=== PATIENT | female | born 1990 | race Caucasian/White ===

== ENCOUNTER 2020-10-15 07:57 | Inpatient (IN) ==
[2020-10-15] MEDS ORDERED: OXYTOCIN 30 UNITS/500 ML BAG IV PRN ×2 (08:26→21:59)
--- NOTE | 2020-10-15 08:56 | Progress Note ---
Date of Service October 15, 2020 Assessment & Plan Admission and Anticipated Discharge Date Admission Date: October 15, 2020 Subjective Admit Note Results & Data ([facility] [place]) Vital Signs (Past 12 Hours) Vital Signs Temp Pulse Resp BP 10/15/20 08:18 37.0 C 90 20 132/74
[2020-10-15] MEDS ORDERED: DINOPROSTONE 10 MG INSERT PV ONE (09:00)
[2020-10-15 09:07] LABS: Hematocrit (blood only) 36.5 % (37-47); Hemoglobin 11.9 g/dL (12.0-16.0); Mean Corpuscular Hemoglobin 29.3 pg (25-34); Mean Corpuscular Hgb Conc 32.6 g/dL (32-36); Mean Corpuscular Volume 89.9 fL (80-100); Mean Platelet Volume 12.4 fL (7.4-10.4); Platelet Count 178 K/uL (130-400); RDW Coefficient of Variation 17.9 % (11.5-14.5); RDW Standard Deviation 59.4 fL (36.4-46.3); Red Blood Count 4.06 M/uL (4.2-5.4); White Blood Count 6.73 K/uL (4.8-10.8)
--- NOTE | 2020-10-15 09:08 | History & Physical Report ---
Date of Service October 15, 2020 Assessment & Plan Admission and Anticipated Discharge Date Admission Date: October 15, 2020 History of Present Illness Chief Complaint: induction of labor Primary Care Provider: NO PCP 30 F P1001 at 39 weeks admitted to L&D for induction of labor due to history of macrosomia and possible shoulder dystocia in previous 03/02/19. Currently has macrosomia with cuurent as well. She is negative for gestational diabetes with this and prior . No other medical history of note. 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 [employer] History wnl Review of Systems All systems reviewed & are unremarkable except as noted in HPI & below Physical Exam Respiratory: normal respiratory effort, lungs clear to auscultation Cardiovascular: RRR, no murmur, no edema Gastrointestinal (Abdomen): normal bowel sounds, soft, nontender, no hepatosplenomegaly Musculoskeletal: no cyanosis or clubbing, extremities motor strength 5/5 Skin: no edema noted Genitourinary: normal external appearance OB Exam Abdomen: + fundal height, + heart tones, + vertex and + estimated weight (10 lbs.) Manual OB Exam: + cervical dilation (closed) fingertip, + cervical effacement (thick) and + station high Results & Data ([facility]) Vital Signs (Past 12 Hours) Vital Signs Temp Pulse Resp BP 10/15/20 08:18 37.0 C 90 20 132/74 Laboratory Results GBS is negative Monitoring External Monitor Cat 1 Tocodynamometer no active contractions OB - A/P Labor/Induction Additional Plan Induction method: other (Cervidil for cervical ripening)
--- NOTE | 2020-10-15 09:50 | Labor Progress Brief Note ---
Date of Service October 15, 2020 Subjective Reason For Note: Other Cervidil 10 mg placed vaginally. Risks of macrosomia delivery explained to patient and . Possible shoulder dystocia or rectal tear with a history of large baby in previous pregancy explained due to having macrosomia with current . I gave them option for possible . Will place Cervidil for ripening. Assessment & Plan Admission and Anticipated Discharge Date Admission Date: October 15, 2020 Results & Data ([facility]) Vital Signs (Past 12 Hours) Vital Signs Temp Pulse Resp BP 10/15/20 08:18 37.0 C 90 20 132/74
[2020-10-15] MEDS: LACTATED RINGER'S 1,000 ML IV PRN (22:28)
--- NOTE | 2020-10-15 22:29 | Labor Progress Brief Note ---
Date of Service October 15, 2020 Assessment & Plan Admission and Anticipated Discharge Date Admission Date: October 15, 2020 Physical Exam Genitourinary: no vaginal lesions, no adnexal mass Manual OB Exam: + cervical dilation 1 cm, + cervical effacement 50% and + station high speculum exam done and Kunz inserted in cervix with 35 ml saline. FHT Cat 1. Will start Oxytocin. Results & Data ([facility]) Vital Signs (Past 12 Hours) Vital Signs Temp Pulse Resp BP 10/15/20 19:04 36.7 C 71 18 138/90 10/15/20 15:12 36.8 C 71 20 134/73 10/15/20 13:15 66 20 142/83 H 10/15/20 11:54 61 144/91 H 10/15/20 11:38 70 141/95 H 10/15/20 11:29 36.9 C 75 20 137/92
[2020-10-16] MEDS ORDERED: ePHEDrine sulfate 50 MG/ML AMP ONE (02:48)
[2020-10-16] MEDS ORDERED: fentaNYL citrate 100 MCG/2 ML VIAL ONE (02:48)
[2020-10-16] MEDS ORDERED: SODIUM CHLORIDE 0.9% INJ 10 ML VIAL ONE (02:48)
[2020-10-16] MEDS ORDERED: BUPIVACAINE 0.25% 30 ML VIAL ONE (02:48)
[2020-10-16] MEDS ORDERED: fentaNYL 2MCG/ML ROPIVACAINE 1.25MG/ML 100 ML BAG EPI ONE (02:49)
--- NOTE | 2020-10-16 02:52 | Anesthesiology Consultation ---
Date of Service October 16, 2020 Assessment & Plan (1) Encounter for pre-operative examination: Chart Review Chart Review: Acceptable Risk for Surgery and Patient NOT seen in Pre Admission Testing Consults Requested none ASA ASA2 Proposed Anesthesia Anesthesia Type: Labor Epidural Risk / Benefits Reviewed With: PT / POA / Parent / Guardian, Accepts Plan and Informed Consent Obtained History Height/Weight Height: 5 ft 5 in Weight: 83.007 kg Allergies Allergy/AdvReac Type Severity Reaction Status Date / Time No Known Allergies Allergy Verified 10/15/20 09:35 Medications Home Medications Medication Instructions Recorded Confirmed Last Taken ferrous sulfate 325 mg (65 mg 325 mg PO DAILY 10/15/20 10/15/20 10/13/20 19:00 iron) tablet prenat.vits,chris,xsq-[id number] 1 tab PO DAILY 10/15/20 10/15/20 10/13/20 19:00 Active Medications Generic Name Dose Route Start Last Admin Trade Name Freq PRN Reason Stop Dose Admin Lactated Ringer's 1,000 mls @ 125 mls/hr 10/15/20 08:26 10/16/20 03:21 Lr IV 10/17/20 08:25 999 mls/hr .Q8H PRN Administration L&D Protocol Protocol Oxytocin 30 units in 500 mls @ 13 mls/hr 10/15/20 21:59 10/16/20 01:45 Pitocin IV 10/17/20 21:58 0.78 units/hr .Q24H PRN 13 mls/hr Labor Induction/Augmentation Titration Protocol 0.78 UNITS/HR NPO Date Last Intake of Fluids: 10/16/20 Time Last Intake of Fluids: 02:50 Date Last Intake of Solids: 10/15/20 Time Last Intake of Solids: 07:00 Past Medical History Medical History No known health problems Exercise / Class Metabolic Activity II 4-5 Yardwork/Stairs/Walk up hill Past Family History Family History Other No known health problems Past Surgical History Surgical History No history of previous surgery Past Anesthesia History No Hx of Anesthesia Complications History of PONV No Hx of PONV Social History Smoking Status: Never smoker Hx Alcohol Use: No Hx Substance Use: No Review of Systems Patient denies history of abnormal bleeding or bleeding disorder. Patient denies active use of anticoagulants other than low dose aspirin. Patient denies numbness, tingling or weakness in lower extremities. Patient denies active symptoms of GERD. Negative for chest pain or shortness of breath. Physical Exam Vital Signs Last Vital Signs Temp 36.4 C L 10/15/20 22:36 Pulse 75 10/16/20 02:44 Resp 18 10/16/20 01:45 BP 118/62 10/16/20 01:46 Pulse Ox 97 10/16/20 02:44 Constitutional not obese (gravid uterus) ENMT Mouth: no TMJ abnormality and oral opening not small Thyromental Distance: > or= 3.5 Finger Breadths Mallampati Class: II Neck normal visual inspection; neck extension not limited Respiratory normal respiratory effort Cardiovascular Rate/Rhythm: regular rate and regular rhythm Neurologic moves all extremities Psychiatric Orientation: alert and oriented x 3 Testing Laboratory Results 10/15/20 08:56
[2020-10-16] MEDS: LACTATED RINGER'S 1,000 ML IV PRN (03:21)
[2020-10-16] MEDS ORDERED: fentaNYL 2MCG/ML ROPIVACAINE 1.25MG/ML 100 ML BAG EPI PRN (03:40)
[2020-10-16] MEDS ORDERED: NALOXONE HCL 1 MG in SODIUM CHLORIDE 0.9% 1000ML 1,000 ML IV PRN (03:40)
[2020-10-16] MEDS ORDERED: NALOXONE HCL 0.4 MG/1 ML VIAL/CARP IV PRN (03:40)
[2020-10-16] MEDS ORDERED: ePHEDrine sulfate 50 MG/ML AMP IV PRN (03:40)
[2020-10-16] MEDS ORDERED: diphenhydrAMINE 50 MG/ML VIAL IV PRN (03:40)
[2020-10-16] MEDS ORDERED: NALBUPHINE HCL INJ 10 MG/ML AMP IV PRN (03:40)
[2020-10-16] MEDS ORDERED: METHYLERGONOVINE MALEATE 0.2 MG/ML AMP ONE (11:09)
[2020-10-16] MEDS ORDERED: BENZOCAINE 20% AER SPR 82.5 GM CAN EXT PRN (11:30)
[2020-10-16] MEDS ORDERED: SUPERCREAM 0.870% 15 GM JAR EXT PRN (11:30)
[2020-10-16] MEDS ORDERED: bisacodyL 10 MG SUPP PR PRN (11:30)
[2020-10-16] MEDS ORDERED: DIPHTHERIA/TETANUS/PERTUSSIS 0.5 ML SYR/VIAL IM ONE (11:30)
[2020-10-16] MEDS ORDERED: miSOPROStoL 200 MCG TAB PR ONE (11:30)
[2020-10-16] MEDS ORDERED: ACETAMINOPHEN 325 MG TAB PO PRN (11:30)
[2020-10-16] MEDS ORDERED: HYDROCORTISONE ACETATE 25 MG SUPP PR PRN (11:30)
[2020-10-16] MEDS ORDERED: METHYLERGONOVINE MALEATE 0.2 MG/ML AMP IM ONE (11:30)
[2020-10-16] MEDS ORDERED: OXYTOCIN 30 UNITS/500 ML BAG IV PRN (11:30)
[2020-10-16] MEDS: ONDANSETRON INJ 2 MG/ML 2 ML VIAL IV PRN (11:56)
--- NOTE | 2020-10-16 12:33 | Anesthesia Procedure Note ---
Date of Service October 16, 2020 Anesthesia Post Epidural Note Vital Signs Vital Signs: Temp Pulse Resp BP Pulse Ox 36.6 C 62 22 161/87 H 99 10/16/20 10:00 10/16/20 12:26 10/16/20 10:45 10/16/20 12:26 10/16/20 11:23 Pain Intensity Lower Abdomen: Pain Intensity: 8 Notes Mental Status: alert / awake / arousable and participated in evaluation Patient Amnestic to Procedure: No Nausea / Vomiting: adequately controlled Pain: adequately controlled Airway Patency, RR, SpO2: stable & adequate BP & HR: stable & adequate Hydration State: stable & adequate Neuraxial Anesthesia: was administered and sensory block is resolving Anesthetic Complications: no major complications apparent and Pt Satisfied with anesthetic care Epidural: Removed without complications and With tip intact
--- NOTE | 2020-10-16 12:55 | Delivery Summary ---
DATE: 10/16/2020 The patient delivered a live male in left occiput anterior presentation. There was no nuchal cord. Infant was delivered and placed on mother's abdomen. Cord was clamped and cut after 1 minute. Cord blood was obtained. Placenta spontaneously delivered. Inspection of the placenta shows a lawrence ssly normal-looking placenta. Placenta was sent to pathology for pathological analysis. Inspection of the perineum shows a second-degree midline laceration, which was repaired with 2-0 Vicr yl in layers as well as 3-0 Vicryl. Rectal exam post-repair showed good sphincter tone. No sutures were palpated in the rectum. Estimated blood loss is 450 mL. All instruments are removed from the vagina and accounted for x2 incl uding sponges, needles, and retractors. Baby and mother are doing well in recovery. Job ID: [id number]
[2020-10-16] MEDS: IBUPROFEN 600 MG TAB PO PRN ×3 (13:21→23:34)
[2020-10-16] MEDS: DOCUSATE SODIUM 100 MG CAP PO SCH (20:30)
[2020-10-17] MEDS: ONDANSETRON INJ 2 MG/ML 2 ML VIAL IV PRN (03:19)
[2020-10-17] MEDS: IBUPROFEN 600 MG TAB PO PRN ×4 (06:20→23:32)
[2020-10-17 06:51] LABS: Hematocrit (blood only) 32.7 % (37-47); Hemoglobin 10.5 g/dL (12.0-16.0); Mean Corpuscular Hemoglobin 29.1 pg (25-34); Mean Corpuscular Hgb Conc 32.1 g/dL (32-36); Mean Corpuscular Volume 90.6 fL (80-100); Mean Platelet Volume 12.4 fL (7.4-10.4); Platelet Count 146 K/uL (130-400); RDW Coefficient of Variation 17.8 % (11.5-14.5); RDW Standard Deviation 59.3 fL (36.4-46.3); Red Blood Count 3.61 M/uL (4.2-5.4); White Blood Count 11.15 K/uL (4.8-10.8)
[2020-10-17] MEDS: DOCUSATE SODIUM 100 MG CAP PO SCH ×2 (08:27→20:11)
[2020-10-17] MEDS: PRENATAL VITAMIN 1 TAB PO SCH (08:27)
[2020-10-17] MEDS ORDERED: bisacodyL 5 MG TABEC PO SCH (20:00)
[2020-10-18] MEDS: IBUPROFEN 600 MG TAB PO PRN ×2 (03:32→08:25)
[2020-10-18 07:07] LABS: Hematocrit (blood only) 31.3 % (37-47); Hemoglobin 10.2 g/dL (12.0-16.0)
[2020-10-18] MEDS: DOCUSATE SODIUM 100 MG CAP PO SCH (08:25)
[2020-10-18] MEDS: PRENATAL VITAMIN 1 TAB PO SCH (08:25)
[2020-10-18] MEDS ORDERED: MEASLES, MUMPS & RUBELLA VIRUS VIAL SQ ONE (08:40)
--- NOTE | 2020-10-18 10:59 | Obstetrical Progress Note ---
Date of Service October 18, 2020 Subjective Ambulation: ambulating normally Passing Gas:: Yes Diet Tolerance:: regular diet Feeding Type:: breast feeding Current Pain Level(1-10): 0 plans for d/c today Physical Exam Constitutional WD/WN, vitals as above comfortable Gastrointestinal (Abdomen) abdomen soft and non-tender fundus firm Skin no edema neg Nam's Results & Data ([facility]) Vital Signs (Past 12 Hours) Vital Signs Temp Pulse Resp BP Pulse Ox 10/18/20 07:19 36.7 C 55 L 18 128/82 97 Laboratory Results Laboratory Results - last 72 hr 10/17/20 10/18/20 06:36 06:38 WBC 11.15 H RBC 3.61 L Hgb 10.5 L 10.2 L Hct 32.7 L 31.3 L MCV 90.6 MCH 29.1 MCHC 32.1 RDW Std Deviation 59.3 H RDW Coeff of Brett 17.8 H Plt Count 146 MPV 12.4 H
== END 2020-10-18 12:50 | disposition home or self-care (01) | DRG 807 ==
LOC: 4S1 07:57 → 4S2 10-16 15:47